=== PATIENT | female | born 1990 | race Caucasian/White ===

== ENCOUNTER 2016-11-27 10:17 | Emergency (ER) | payer MEDICAID, OTHER ==
[2016-11-27] MEDS ORDERED: TETRACAINE HCL 150 DROP BTL ONE (10:37)
[2016-11-27] MEDS ORDERED: ERYTHROMYCIN BASE 3.5 APPL TUBE RIGHTEYE ONE (10:53)
[2016-11-27] MEDS ORDERED: ERYTHROMYCIN BASE 3.5 APPL TUBE ONE (11:02)
--- NOTE | 2016-11-27 11:07 | ERNOTE ---
ENT HPI Date of Service: 11/27/16 Presenting Symptoms: eye pain Time Seen by Provider: 11/27/16 10:46 Source: patient - Immun/Allergies/Home Medications Immunizations: IMMUNIZATION HX Immunizations Up to Date Yes History of Influenza Vaccine No Hx Pneumococcal Vaccination No Allergies/Adverse Reactions: Allergies Allergy/AdvReac Type Severity Reaction Status Date / Time [facility] Allergy Intermediate Hives Verified 12/02/15 09:58 penicillin G Allergy Intermediate Hives Verified 12/02/15 09:58 penicillin V Allergy Intermediate Hives Verified 12/02/15 09:58 Home Medications: HOME MEDICATIONS Docusate Sodium [Colace] 100 mg PO HS PRN 08/04/15 [Last Taken 10/10/15] Mometasone Furoate [Asmanex] 1 puff IH BID 11/29/15 [Last Taken Unknown] Norethindrone [Nor-Q-D] 0.35 mg PO DAILY 11/29/15 [Last Taken Unknown] Erythromycin Base [Erythromycin] 3.5 gm OP BID #1 oint...g. 11/27/16 [Last Taken Unknown] - History of Present Illness Narrative: right upper eye lid swelling with mild discomfort, no loss of vision. Date (Duration): 11/27/16 Severity: Present: mild ENT Location: Present: eye (R) Prearrival Treatment: Present: no prearrival treatment Modifying Factors - Improves: Reports: nothing Modifying Factors - Worsens: Reports: nothing Review of Systems - Review of Systems Constitutional: Present: no symptoms reported, See HPI EYE: Present: see HPI ENT: Present: no symptoms reported Respiratory: Present: no symptoms reported Cardiology: Present: no symptoms reported Gastrointestinal/Abdominal: Present: no symptoms reported Genitourinary: Present: no symptoms reported Musculoskeletal: Present: no symptoms reported Skin: Present: no symptoms reported Neurological: Present: no symptoms reported Endocrine: Present: no symptoms reported Hematologic/Lymphatic: Present: no symptoms reported Psych: Present: no symptoms reported All Other Systems: All systems neg except as marked - Patient's Past Medical History Patient History - Medical: Headache, UTI'S Patient History - Cardiac/Respiratory: Asthma Patient History - Cancer: No Hx of Cancer Patient History - Surgical Procedures: T & A Patient History - Other: None LMP (Calendar): 11/27/14 - Family History Mother Family History - Medical: No pertinent hx Family History - Cardiac/Respiratory: Asthma - Social History Living Situations: home Abuse History: No History of abuse Psych History: Hx of Anxiety Smoking Status: Current some day smoker Have you smoked in the past 12 months: Yes Alcohol Use: none Drug Use: none - Immunizations Immunizations Up to Date: Yes Hx Pneumococcal Vaccination: No History of Influenza Vaccine: No Physical Exam - Physical Exam Narrative: right upper eyelid edematous. sclera clear, no drainage. General Appearance: Present: wd/wn, alert, no apparent distress Head Exam: Present: normal inspection, no evidence of injury Eye Exam: Normal inspection: left, PERRL: bilateral, EOMI: bilateral, Eyelid inflammation: right Ears, Nose, Throat: Present: normal ENT inspection, normal pharynx Neck: Present: normal inspection, nontender, full range of motion Respiratory: Present: no respiratory distress, normal breath sounds, no accessory muscle use, chest nontender, lungs clear Cardiovascular/Chest: Present: regular rate, rhythm, no murmur, normal peripheral pulses Gastrointestinal/Abdominal: Present: normal bowel sounds, nontender, nondistended, soft, no organomegaly Back Exam: Present: normal inspection, normal range of motion, no CVA tenderness , no vertebral tenderness Extremity Exam: Present: normal inspection, non-tender, normal range of motion, no edema Neurological Exam: Present: alert, oriented, normal mood/affect, no motor/ sensory deficits Skin Exam: Present: normal color, warm/dry Lymphatic Exam: Present: no adenopathy ED Progress - Vital Signs Patient's Vital Signs:: I have reviewed the patient's vital signs. Vital Signs: Vital Signs 11/27/16 10:25 Temperature 37.2 C Pulse Rate 109 H Respiratory 16 Rate Blood Pressure 132/95 O2 Sat by Pulse 100 Oximetry - Progress/Reassessment Chief Complaint: Eye Injury/Trauma Progress:: Improved Plan - Plan Plan: patient given her eye abx in ED. patient aware she needs to follow up with her home companion in the next 2-3 days. Patient is aware that she needs to return to the emergency room if symptoms do not get better or she develops any changes in vision. Departure Clinical Impression: Blepharitis of eyelid of right eye Qualifiers: Blepharitis type: unspecified type Eyelid: upper Qualified Code(s): H01.001 - Unspecified blepharitis right upper eyelid - Departure Disposition: Home Follow Up Needed Condition: Stable Instructions: Blepharitis Additional Instructions: Continue any previous home medications as directed. Follow-up with your eye doctor the next 2-3 days. Return to the emergency room if anything changes. Referrals: Luz Tao MD [Primary Care Provider] - Prescriptions: Erythromycin Base [Erythromycin] 3.5 gm OP BID #1 oint...g.
[2016-11-27 12:38] VITALS: BP 128/94
== END 2016-11-27 11:10 | disposition home or self-care (01) ==
LOC: ER 10:17
DX: H01.001 Unspecified blepharitis right upper eyelid (principal); F17.200 Nicotine dependence, unspecified, uncomplicated

== ENCOUNTER 2018-06-12 23:54 | Inpatient (IN) ==
[2018-06-13] MEDS ORDERED: ONDANSETRON 4 MG TAB.RAPDIS PO PRN (00:03)
[2018-06-13] MEDS ORDERED: DEXTROSE 5%-LACTATED RINGERS 1,000 ML IV PRN (00:03)
[2018-06-13] MEDS ORDERED: OXYTOCIN/DEXTROSE 5%-WATER 30 UNITS/500 ML BAG IV ONE (00:03)
[2018-06-13] MEDS: MISOPROSTOL 100 MCG TABLET VG PRN ×2 (00:36→05:45)
[2018-06-13 04:53] LABS: Cocaine Ur Negative (NEGATIVE); Urine Barbiturate Negative (NEGATIVE); Urine Benzodiazepines Negative (NEGATIVE); Urine Opiates Negative (NEGATIVE); Urine PCP Negative (NEGATIVE); Urine THC Negative (NEGATIVE)
[2018-06-13] MEDS: RINGER'S SOLUTION,LACTATED 1,000 ML IV ONE (11:02)
[2018-06-13] MEDS ORDERED: ONDANSETRON HCL/PF 2 MG/ML VIAL IV PRN (11:12)
[2018-06-13] MEDS ORDERED: BUPIVACAINE HCL/0.9 % NACL/PF 250 ML EP PRN (11:12)
[2018-06-13] MEDS ORDERED: NALOXONE HCL 1 MG/1 ML SYRG IV PRN (11:12)
[2018-06-13] MEDS ORDERED: BUPIVACAINE HCL/PF 30 ML VIAL EP SCH (11:15)
--- NOTE | 2018-06-13 13:02 | HP ---
Chief Complaint - Chief Complaint Date of Service: 06/13/18 Time of Service: 13:02 Chief Complaint: elective induction of labor History of Present Illness: 28 yo at 39 2/7 weeks presents to L&D for elective induction of labor. This complicated by anemia, asthma, and history of preeclampsia. Rh positive Rubella immune GBS negative. Medical History (Updated 06/13/18 @ 13:02 by Long Lizarraga DO) History of pre-eclampsia in prior , currently (Acute) Asthma (Chronic) Asthma Onset Date: ~05/28/14 asthmanex BID. Albuterol inhaler 1x weekly. Headache Onset Date: Unknown H/O wisdom tooth extraction Onset Date: ~2006 Pre-eclampsia Onset Date: ~2011 Teratoma of ovary Onset Date: ~12/16/15 Surgical History: Surgical History (Updated 06/13/18 @ 13:02 by Long Lizarraga DO) History of dermoid cyst excision (Resolved) right ovary 12/12 History of ovarian cystectomy Onset Date: ~11/2015 History of tonsillectomy Onset Date: Unknown Family History: Family History (Updated 11/06/17 @ 10:10 by Soco Frazier RN) Mother Asthma Grandmother Eosinophilic leukemia Hypertension Emphysema of lung Social History: Preferred Language Tajik Smoking Status Former smoker Abuse History No History of abuse Psych History Hx of Anxiety (Last Updated 06/10/18 @ 15:17 by BENJAMIN Calderón) No Social History Section defined Review Of Systems (GEN) - Review of Systems Generalized/Overall Review: Present: No Symptoms Reported EENTM: Present: No Symptoms Reported Respiratory: Present: No Symptoms Reported Cardiac: Present: No Symptoms Reported Abdominal: Present: No Symptoms Reported Genitourinary: Present: No Symptoms Reported Musculoskeletal: Present: No Symptoms Reported Neurological: Present: No Symptoms Reported Skin: Present: No Symptoms Reported Endocrine: Present: No Symptoms Reported Immunizations: IMMUNIZATION HX Immunizations Up to Date Yes History of Influenza Vaccine Yes Hx Pneumococcal Vaccination No Allergies/Adverse Reactions: Allergies Allergy/AdvReac Type Severity Reaction Status Date / Time cefaclor [From [facility]] Allergy Intermediate Hives Verified 06/13/18 00:06 penicillin G Allergy Intermediate Hives Verified 06/13/18 00:05 penicillin V Allergy Intermediate Hives Verified 06/13/18 00:05 Home Medications: HOME MEDICATIONS albuterol sulfate HFA 90 mcg/actuation aerosol inhaler 2 puff IH Q4H PRN 10/08/17 [Last Taken 06/12/18] mometasone 220 mcg (120 doses) breath activated powder inhaler 1 inh IH BID 10/08/17 [Last Taken 06/12/18 17:00] docusate sodium 100 mg capsule 100 mg PO DAILY PRN 11/06/17 [Last Taken Unknown] vitamin,calcium,oyhgwvkt-jfpw-iijai acid tablet 1 tab PO DAILY 11/06/17 [Last Taken 06/12/18 22:00] acetaminophen 500 mg tablet 500 mg PO Q6H PRN 12/04/17 [Last Taken Unknown] magnesium oxide 400 mg capsule 400 mg PO DAILY cap 01/29/18 [Last Taken 06/12/18 22:00] ferrous sulfate 325 mg (65 mg iron) tablet,delayed release 325 mg PO DAILY tab 03/26/18 [Last Taken 06/12/18] loratadine 10 mg tablet 10 mg PO DAILY PRN 06/03/18 [Last Taken 06/11/18] Exam - Exam Vital Signs: Vital Signs - Last Taken Temp 36.3 C 06/13/18 00:03 Pulse 88 06/13/18 00:03 Resp 20 06/13/18 00:03 BP 113/73 06/13/18 00:03 Pulse Ox 96 06/13/18 00:03 Constitutional: Present: Alert, Oriented x3, Cooperative, No distress ENT Exam: Present: hearing grossly normal Breasts: Present: Exam deferred Respiratory: Present: lungs clear, no respiratory distress Cardiovascular/Chest: Present: normal peripheral pulses, regular rate, rhythm Abdomen: Present: Normal bowel sounds, soft, nontender, no rebound tenderness, other - gravid /Rectal: Present: Other - FT/50/-3 Extremity: Present: normal range of motion, non-tender, normal inspection, no pedal edema, no calf tenderness Skin Exam: Present: normal color, warm/dry, no cyanosis Neurologic: Present: alert, normal mood/affect, oriented x 3 Appearance: Present: appropriate appearance, appropriate insight Eye contact: Present: cooperative, good eye contact Thoughts: Present: normal thought pattern Diagnostic Studies: Laboratory Results Negative (NEGATIVE) 06/13/18 04:43 Negative (NEGATIVE) 06/13/18 04:43 Ur Phencyclidine Scrn Negative (NEGATIVE) 06/13/18 04:43 Urine Amphetamine Negative (NEGATIVE) 06/13/18 04:43 U Benzodiazepines Scrn Negative (NEGATIVE) 06/13/18 04:43 Negative (NEGATIVE) 06/13/18 04:43 Negative (NEGATIVE) 06/13/18 04:43 Assessment/Plan - Assessment/Plan (1) Elective induction of labor planned Assessment: Admit for cytotec induction of labor. Pitocin and Epidural PRN. Problem: Acute (2) Anemia during Problem: Chronic (3) History of pre-eclampsia in prior , currently Problem: Chronic (4) Asthma Problem: Chronic Qualifiers: Asthma severity: mild Asthma persistence: intermittent Asthma complication type: uncomplicated Qualified Code(s): J45.20 - Mild intermittent asthma, uncomplicated
--- NOTE | 2018-06-13 17:47 | PN ---
Progess Note - Interim Date: 06/13/18 Time: 17:45 Narrative: 06/13/18 17:45 Patient rating her contractions as mild Vital signs stable. Pitocin at 4 mu/min. FHT: 125 baseline, reassuring Contractions q 2-3 min Cervix: 4/60/-3 Impression: Intrauterine at 39-2/7 weeks, elective induction of labor Plan: Epidural when she becomes more uncomfortable. Will plan on rupture membranes when head well applied to cervix.
[2018-06-13] MEDS ORDERED: BUTORPHANOL TARTRATE 2 MG/ML VIAL IV PRN (22:20)
[2018-06-14] MEDS ORDERED: ACETAMINOPHEN 500 MG TABLET PO ONE (04:42)
--- NOTE | 2018-06-14 07:11 | ANES ---
Anesthesia Pre Procedure Eval Vitals/Labs: Last Vital Signs Temp 36.3 C 06/13/18 00:03 Pulse 88 06/13/18 00:03 Resp 20 06/13/18 00:03 BP 113/73 06/13/18 00:03 Pulse Ox 96 06/13/18 00:03 HOME MEDICATIONS albuterol sulfate HFA 90 mcg/actuation aerosol inhaler 2 puff IH Q4H PRN 10/08/17 [Last Taken 06/12/18] mometasone 220 mcg (120 doses) breath activated powder inhaler 1 inh IH BID 10/08/17 [Last Taken 06/12/18 17:00] docusate sodium 100 mg capsule 100 mg PO DAILY PRN 11/06/17 [Last Taken Unknown] vitamin,calcium,gjkbieyd-dyvx-jqwqc acid tablet 1 tab PO DAILY 11/06/17 [Last Taken 06/12/18 22:00] acetaminophen 500 mg tablet 500 mg PO Q6H PRN 12/04/17 [Last Taken Unknown] magnesium oxide 400 mg capsule 400 mg PO DAILY cap 01/29/18 [Last Taken 06/12/18 22:00] ferrous sulfate 325 mg (65 mg iron) tablet,delayed release 325 mg PO DAILY tab 03/26/18 [Last Taken 06/12/18] loratadine 10 mg tablet 10 mg PO DAILY PRN 06/03/18 [Last Taken 06/11/18] Allergies/Adverse Reactions: Allergies Allergy/AdvReac Type Severity Reaction Status Date / Time cefaclor [From [facility]] Allergy Intermediate Hives Verified 06/13/18 00:06 penicillin G Allergy Intermediate Hives Verified 06/13/18 00:05 penicillin V Allergy Intermediate Hives Verified 06/13/18 00:05 - Planned Procedure Planned Procedure: INDUCTION 06/13 2018 Medication List Reviewed:: Yes Allergies Verified: Yes Medical History (Updated 06/13/18 @ 16:13 by Lnog Lizarraga DO) History of pre-eclampsia in prior , currently (Chronic) Asthma (Chronic) Asthma Onset Date: ~05/28/14 asthmanex BID. Albuterol inhaler 1x weekly. Headache Onset Date: Unknown H/O wisdom tooth extraction Onset Date: ~2006 Pre-eclampsia Onset Date: ~2011 Teratoma of ovary Onset Date: ~12/16/15 Surgical History (Updated 06/13/18 @ 13:02 by Long Lizarraga DO) History of dermoid cyst excision (Resolved) right ovary 12/12 History of ovarian cystectomy Onset Date: ~11/2015 History of tonsillectomy Onset Date: Unknown Family History (Updated 11/06/17 @ 10:10 by Soco Frazier RN) Mother Asthma Grandmother Eosinophilic leukemia Hypertension Emphysema of lung - Family Anesthesia History Family History:: no untoward family reactions to anesthesia, no familial bleeding tendencies, no family history of clotting disorders, no family history of premature - Airway/Neck/Teeth Within Normal Limits:: Yes Teeth Condition: intact Mallampatti Score: 2 Thyromental (T-M) distance: > 6 cm Mandibulo Hyoid distance: > 3 cm - Respiratory Respiratory Physical: lungs clear Smoking Status: Never smoker Discussed smoking cessation including day of surgery: No Sleep Apnea currently treated: No Sleep Apnea by current assessment: No - Cardiovascular Tolerate Activity: Fair Heart Sounds: S1 & S2, Regular - Anesthesia Assessment and Plan ASA Class: PS, II, E Anesthesia Type Plan: Epidural - CSE for labor analgesia
[2018-06-14] MEDS ORDERED: fentaNYL CITRATE/PF 50 MCG/ML AMPUL IT ONE ×2 (07:50→08:13)
[2018-06-14] MEDS ORDERED: fentaNYL CITRATE/PF 50 MCG/ML AMPUL ONE (07:51)
[2018-06-14] MEDS ORDERED: LIDOCAINE HCL/EPINEPHRINE 20 ML VIAL ONE (07:53)
[2018-06-14] MEDS: RINGER'S SOLUTION,LACTATED 1,000 ML IV ONE ×2 (08:23→16:16)
--- NOTE | 2018-06-14 08:25 | ANES ---
Post Anesthesia Discharge - Transfer of Care Transfer of Care handoff given to nurse: Yes - Discharge from PACU Discharge from PACU when meets criteria: Yes
--- NOTE | 2018-06-14 08:29 | ANES ---
Anesthesia Procedure Note Procedure Note: ANESTHESIA PROCEDURE NOTE Date of Procedure: 06/14/2018 Time of procedure: 7:45 AM. Performed by: Ted Whitten CRNA, MSN Talent Rep: Ama Fowler RN. Preprocedure diagnosis: Active labor, labor pain. Post procedure diagnosis: Same. Procedure:Epidural for labor analgesia L34. Indications: Labor pain. Findings: See below. Details of the procedure: The patient was placed on the side of the bed in sitting positionand prepped with DuraPrep then draped in a sterile fashion. Lidocaine 1% was infiltrated to the skin and subcutaneous tissues at the level of the L3 4 interspace. An 18-gauge Touhy needle was used to approach the epidural space with loss of resistance technique. By palpation she appeared to be much more left lateral than one would anticipate, further, the angle of approach was additionally left biased. Once loss of resistance was achieved a 27-gauge spinal needle was passed through the epidural needle and CSF was contacted. After CSF returned, 20 mcg of fentanyl was injected in the spinal needle was removed the epidural catheter was then threaded approximately 4 cm in the epidural needle was removed. The catheter was taped in place and after careful aspiration 3 mL of 2% lidocaine with 1-200,000 epinephrine was injected.there was a gradual increase of heart rate from 80s to 120 which was transient. Considering there were no other changes or indications of issue, I opted to leave the catheter as it was positioned and test it later. Surgeon was informed in the nurses instructed that no further injection through the epidural was to be undertaken until it was retested. EBL: Minimal. Fluids: N/A. Specimen: N/A. Post procedure condition: The patient tolerated the procedure well with. Good Relief. No complications were noted. Thank you for this consultation. Ted Whitten CRNA, MSN
[2018-06-14] MEDS: fentaNYL CITRATE/PF 50 MCG/ML AMPUL IT SCH ×2 (08:31→10:54)
[2018-06-14] MEDS ORDERED: BUPIVACAINE HCL/0.9 % NACL/PF 250 ML EP PRN (11:47)
--- NOTE | 2018-06-14 12:43 | PN ---
Progess Note - Interim Date: 06/14/18 Time: 12:36 Narrative: 06/14/18 12:36 Patient comfortable with epidural Vital signs stable. Pitocin at 6 mu/min. FHT: 130 baseline, reassuring Contractions q 2-3 min Cervix: 8/90/-3. Bulging bag of water Impression: Intrauterine at 39-3/7 weeks elective induction of labor with protracted descent/dilation. The head is not descended into the pelvis in over 36 hours. Plan: We'll take patient to the OR to break water in case of cord prolapse. Risks, benefits, alternatives to possible emergent discussed with patient and spouse.
[2018-06-14] MEDS ORDERED: HYDROCORTISONE 30 APPL TUBE TP PRN (15:08)
[2018-06-14] MEDS ORDERED: OXYTOCIN/DEXTROSE 5%-WATER 30 UNITS/500 ML BAG IV ONE (15:08)
[2018-06-14] MEDS ORDERED: GLYCERIN/WITCH HAZEL LEAF 40 APPL BOX TP PRN (15:08)
[2018-06-14] MEDS ORDERED: SENNOSIDES 8.6 MG TABLET PO PRN (15:08)
[2018-06-14] MEDS ORDERED: BENZOCAINE/MENTHOL 81 SPRAY CAN TP PRN (15:08)
[2018-06-14] MEDS ORDERED: BISACODYL 10 MG SUPP.RECT RC PRN (15:08)
[2018-06-14] MEDS ORDERED: oxyCODONE HCL/ACETAMINOPHEN 1 TAB TABLET PO PRN (15:08)
[2018-06-14] MEDS ORDERED: LORATADINE 10 MG TABLET PO PRN (15:09)
[2018-06-14] MEDS ORDERED: DOCUSATE SODIUM 100 MG CAPSULE PO PRN (15:09)
[2018-06-14] MEDS ORDERED: ALBUTEROL SULFATE 200 PUFF INHALER IH PRN (15:09)
--- NOTE | 2018-06-14 15:18 | OR ---
Operative Report - Dictated Report Narrative: Spontaneous vaginal delivery of viable male at 1446 on 06/14/2018 with Apgars 8 and 9, weighing 3887 g in VASILIY position with right foot cord 1. began crying on mother's abdomen. Cord clamping delayed approximately 1 minute Placenta delivered complete, intact, with three vessel cord Estimated blood loss: less than 50 ml Anesthesia: epidural Lacerations: None
--- NOTE | 2018-06-14 15:18 | PN ---
Progess Note - Interim Date: 06/14/18 Time: 15:18 History for MU Definition: * The number of deliveries resulting in a live the patient experienced prior to current hospitalization * The previous delivery of live twins or any live multiple gestation is considered one live event. *If primagravida or nulliparous is documented select zero for the number of previous live births. Live Events: 2
[2018-06-14] MEDS: oxyCODONE HCL/ACETAMINOPHEN 1 TAB TABLET PO PRN ×3 (15:24→23:12)
[2018-06-14] MEDS: IBUPROFEN 800 MG TABLET PO PRN ×2 (15:24→22:12)
[2018-06-14] MEDS ORDERED: MISOPROSTOL 200 MCG TABLET RC ONE ×3 (15:55→16:22)
--- NOTE | 2018-06-14 16:09 | PN ---
Progess Note - Interim Date: 06/14/18 Time: 16:05 Narrative: 06/14/18 16:05 Called to bedside for patient with heavy vaginal bleeding. Verbal order for cytotec 400mcg and st cath given prior to arrival. Uterus firm, passed a large clot (approx 1000cc), no further clots upon manual exploration of uterus. Bleeding well controlled. Patient assymptomatic. Increased pitocin to 30mu/min and IV fluids to 999ml/min. Continue to monitor for now.
[2018-06-14] MEDS: DOCUSATE SODIUM 100 MG CAPSULE PO SCH (21:07)
[2018-06-14] MEDS: BUDESONIDE 0.5 MG/2 ML VIAL.NEB IH SCH (21:08)
[2018-06-15] MEDS: oxyCODONE HCL/ACETAMINOPHEN 1 TAB TABLET PO PRN ×3 (04:21→18:20)
[2018-06-15] MEDS: IBUPROFEN 800 MG TABLET PO PRN ×3 (04:21→19:52)
[2018-06-15] MEDS: BUDESONIDE 0.5 MG/2 ML VIAL.NEB IH SCH (08:10)
[2018-06-15] MEDS: PRENATAL VITS96/IRON FUM/FOLIC 1 TAB TABLET PO SCH (08:10)
[2018-06-15] MEDS: FERROUS SULFATE 325 MG TABLET PO SCH (08:11)
[2018-06-15] MEDS: MAGNESIUM OXIDE 400 MG TABLET PO SCH (08:13)
[2018-06-15] MEDS: DOCUSATE SODIUM 100 MG CAPSULE PO SCH ×2 (09:23→21:15)
--- NOTE | 2018-06-15 11:43 | PN ---
Subjective - Date and Time Seen Date: 06/15/18 Time: 11:41 Objective - Vitals Vitals: Last Vital Signs Temp 36.0 C 06/15/18 06:56 Pulse 84 06/15/18 06:56 Resp 18 06/15/18 06:56 BP 91/54 06/15/18 06:56 Pulse Ox 98 06/15/18 06:56 Patient denies complaints. Ambulating without lightheadedness or dizziness Lochia wnl Abdomen - soft, nontender Uterus - firm, at umbilicus - 1 No calf tenderness Impression: day #1 - s/p spontaneous vaginal delivery. hemorrhage due to uterine atony-resolved, patient compensating well and probably will not require blood. Plan: Continue routine care. Cauti Physician Documentation - Urinary Catheter Management Urethral ([place]) Date of Insertion: 06/14/18 Time of Insertion: 10:27 Assessment/Plan - Problems/Diagnosis (1) Elective induction of labor planned Problem: Acute (2) Anemia during Problem: Chronic (3) History of pre-eclampsia in prior , currently Problem: Chronic (4) Asthma Problem: Chronic Qualifiers: Asthma severity: mild Asthma persistence: intermittent Asthma complication type: uncomplicated Qualified Code(s): J45.20 - Mild intermittent asthma, uncomplicated
[2018-06-16] MEDS: oxyCODONE HCL/ACETAMINOPHEN 1 TAB TABLET PO PRN ×3 (00:29→10:16)
[2018-06-16] MEDS: IBUPROFEN 800 MG TABLET PO PRN (05:45)
--- NOTE | 2018-06-16 08:20 | PN ---
Subjective - Date and Time Seen Date: 06/16/18 Time: 08:18 Objective - Vitals Vitals: Last Vital Signs Temp 36.5 C 06/16/18 00:59 Pulse 88 06/16/18 00:59 Resp 20 06/16/18 00:59 BP 95/51 06/16/18 00:59 Pulse Ox 98 06/16/18 00:59 Patient denies complaints. Ambulating well without signs or symptoms of hypovolemia/severe anemia Lochia wnl Abdomen - soft, nontender Uterus - firm, at umbilicus - 2 No calf tenderness Impression: day #2 - s/p spontaneous vaginal delivery. hemorrhage due to uterine atony-resolved Plan: Routine discharge instructions. Extra iron twice a day for the next 6 months. Cauti Physician Documentation - Urinary Catheter Management Urethral ([place]) Date of Insertion: 06/14/18 Time of Insertion: 10:27 Assessment/Plan - Problems/Diagnosis (1) Elective induction of labor planned Problem: Acute (2) Anemia during Problem: Chronic (3) History of pre-eclampsia in prior , currently Problem: Chronic (4) Asthma Problem: Chronic Qualifiers: Asthma severity: mild Asthma persistence: intermittent Asthma complication type: uncomplicated Qualified Code(s): J45.20 - Mild intermittent asthma, uncomplicated
[2018-06-16 08:26] VITALS: BP 101/64
[2018-06-16] MEDS: DOCUSATE SODIUM 100 MG CAPSULE PO SCH (08:34)
[2018-06-16] MEDS: PRENATAL VITS96/IRON FUM/FOLIC 1 TAB TABLET PO SCH (08:34)
[2018-06-16] MEDS: MAGNESIUM OXIDE 400 MG TABLET PO SCH (08:35)
[2018-06-16] MEDS: FERROUS SULFATE 325 MG TABLET PO SCH (08:35)
== END 2018-06-16 11:05 | disposition home or self-care (01) | DRG 806 ==
LOC: OB 23:54
PROVIDERS: ADMIT Obstetrics & Gynecology; ATTEND Obstetrics & Gynecology
CPT/HCPCS: 59025; 80307; J2405